=== PATIENT | female | born 1935 | race Caucasian/White ===

== ENCOUNTER 2019-03-29 09:40 | Inpatient (IN) ==
[2019-03-29 11:14] LABS: Basophils # 0.1 K/mcL (0.0-0.2); Basophils % 0.6 %; Eosinophils # 0.1 K/mcL (0.0-0.6); Eosinophils % 0.7 %; Hematocrit 40.9 % (35.3-44.9); Hemoglobin 13.2 g/dL (11.5-15.4); Immature Granulocytes % 1.1 % (0-4); Lymphocytes # 1.1 K/mcL (0.6-4.6); Lymphocytes % 12.8 %; Mean Corpuscular HGB Conc 32.3 g/dL (31.6-35.5); Mean Corpuscular Hemoglobin 27.2 pg (28.0-33.3); Mean Corpuscular Volume 84.2 fL (83.0-100.0); Mean Platelet Volume 8.5 fL (9.4-12.4); Monocytes # 0.8 K/mcL (0.0-1.3); Monocytes % 9.5 %; Neutrophils # 6.4 K/mcL (1.6-8.9); Platelet Count 369 K/mcL (140-400); Red Blood Count 4.86 M/mcL (3.82-4.97); Red Cell Distribution Width 13.9 % (11.5-14.5); Segmented Neutrophils % 75.3 %; White Blood Count 8.5 K/mcL (4.3-11.1)
[2019-03-29 11:30] LABS: Bilirubin,Urine Negative (Negative); Blood,Urine Moderate (Negative); Clarity,Urine Cloudy (Clear); Color,Urine Yellow (Yellow); Glucose,Urine (UA) Normal (Normal); Ketones,Urine 15 mg/dL (Negative); Leukocyte Esterase,Urine Large (Negative); Nitrite,Urine Negative (Negative); PH,Urine 6.5 pH Units (5.0-8.0); Protein,Urine 30 mg/dL (Neg-Trace); Specific Gravity,Urine 1.016 (1.010-1.025); Urobilinogen,Urine Normal (Normal)
[2019-03-29 11:32] LABS: Bacteria,Urine Few per hpf (None-Few); Hyaline Casts,Urine None Seen per lpf (None-Few); Squamous Epithelial Cell,Urine Many per lpf (None-Few); WBC,Urine TNTC per hpf (0-3)
[2019-03-29 11:34] LABS: Alanine Aminotransferase 16 Units/L (7-52); Albumin 3.9 g/dL (3.5-5.7); Albumin/Globulin Ratio 1.1 (1.1-2.2); Alkaline Phosphatase 210 Units/L (34-104); Aspartate Amino Transferase 73 Units/L (13-39); BUN/Creatinine Ratio 10 (6-26); Bilirubin,Total 0.4 mg/dL (0.3-1.0); Blood Urea Nitrogen 10 mg/dL (8-23); Calcium 9.8 mg/dL (8.6-10.3); Carbon Dioxide 27 mEq/L (23-29); Chloride 97 mEq/L (98-107); Globulin 3.7 g/dL (2.4-3.5); Glucose 129 mg/dL (70-105); Osmolality,Calculated 277 (280-300); Potassium 4.3 mEq/L (3.5-5.1); Sodium 133 mEq/L (136-145); Total Protein 7.6 g/dL (6.4-8.9); Troponin I < 0.03 ng/mL (< 0.04); eGFR For African Americans > 60 (> 60); eGFR For Non-African Americans 53 (> 60)
[2019-03-29] MEDS ORDERED: *HR* FentaNYL (PF) 100 MCG/2 ML VIAL IVP ONE (11:44)
[2019-03-29 12:23] LABS: Magnesium 2.2 mg/dL (1.6-2.6); Phosphorous 2.9 mg/dL (2.7-4.5)
[2019-03-29] MEDS ORDERED: *HR* HYDROmorphone (PF) 1 MG/ML SYRINGE IVP ONE (13:49)
[2019-03-29] MEDS ORDERED: Gadolinium Contrast Agent (WT Based) IV PRN (15:17)
[2019-03-29] MEDS ORDERED: Ondansetron 4 MG/2 ML VIAL IVP PRN (15:20)
[2019-03-29] MEDS ORDERED: Naloxone 0.4 MG/ML INJ IVP PRN (15:20)
[2019-03-29] MEDS ORDERED: 0.9 % Sodium Chloride 1,000 ML IVC SCH (15:30)
[2019-03-29] MEDS: Dexamethasone 4 MG/ML VIAL IVP SCH ×2 (17:57→22:17)
[2019-03-29] MEDS: *HR* OxyCODONE Immed Rel 5 MG TABLET PO PRN (17:57)
[2019-03-29] MEDS: Gabapentin 100 MG CAPSULE PO SCH (22:17)
[2019-03-30] MEDS: Dexamethasone 4 MG/ML VIAL IVP SCH ×2 (04:07→09:22)
[2019-03-30 07:22] LABS: Basophils % 0.3 %; Hematocrit 37.6 % (35.3-44.9); Hemoglobin 11.7 g/dL (11.5-15.4); Immature Granulocytes % 1.4 % (0-4); Lymphocytes # 0.9 K/mcL (0.6-4.6); Lymphocytes % 14.8 %; Mean Corpuscular HGB Conc 31.1 g/dL (31.6-35.5); Mean Corpuscular Hemoglobin 27.3 pg (28.0-33.3); Mean Corpuscular Volume 87.6 fL (83.0-100.0); Mean Platelet Volume 8.8 fL (9.4-12.4); Monocytes # 0.3 K/mcL (0.0-1.3); Monocytes % 4.3 %; Platelet Count 304 K/mcL (140-400); Red Blood Count 4.29 M/mcL (3.82-4.97); Red Cell Distribution Width 13.8 % (11.5-14.5); Segmented Neutrophils % 79.2 %; White Blood Count 6.3 K/mcL (4.3-11.1)
[2019-03-30 07:40] LABS: BUN/Creatinine Ratio 16 (6-26); Blood Urea Nitrogen 14 mg/dL (8-23); Calcium 9.3 mg/dL (8.6-10.3); Carbon Dioxide 25 mEq/L (23-29); Chloride 101 mEq/L (98-107); Glucose 139 mg/dL (70-105); Osmolality,Calculated 285 (280-300); Potassium 4.4 mEq/L (3.5-5.1); Sodium 136 mEq/L (136-145); eGFR For African Americans > 60 (> 60); eGFR For Non-African Americans > 60 (> 60)
[2019-03-30] MEDS: Gabapentin 100 MG CAPSULE PO SCH ×2 (09:22→21:14)
[2019-03-30] MEDS: Aspirin Enteric Coated 81 MG Tablet PO SCH (09:22)
[2019-03-30] MEDS: Acetaminophen 325 MG TABLET PO PRN ×2 (13:42→21:14)
[2019-03-31] MEDS: Acetaminophen 325 MG TABLET PO PRN (06:27)
[2019-03-31] MEDS: Aspirin Enteric Coated 81 MG Tablet PO SCH (08:39)
[2019-03-31] MEDS: Gabapentin 100 MG CAPSULE PO SCH (08:39)
[2019-03-31] MEDS ORDERED: Dexamethasone 4 MG/ML VIAL IVP SCH (09:00)
[2019-03-31] MEDS ORDERED: Gabapentin 100 MG CAPSULE PO ONE (09:39)
[2019-03-31] MEDS: *HR* OxyCODONE Immed Rel 5 MG TABLET PO PRN ×3 (11:51→23:03)
[2019-03-31 12:37] LABS: INR 1.3
[2019-03-31] MEDS: Gabapentin 300 MG CAPSULE PO SCH (20:18)
[2019-04-01] MEDS ORDERED: 0.9 % Sodium Chloride 500 ML ONE (09:09)
[2019-04-01] MEDS: Gabapentin 300 MG CAPSULE PO SCH ×2 (10:03→20:02)
[2019-04-01] MEDS: Aspirin Enteric Coated 81 MG Tablet PO SCH (10:03)
[2019-04-01] MEDS: *HR* OxyCODONE Immed Rel 5 MG TABLET PO PRN (10:03)
[2019-04-01] MEDS ORDERED: *HR* OxyCODONE Immed Rel 5 MG TABLET PO PRN (11:50)
[2019-04-01] MEDS: Acetaminophen 325 MG TABLET PO PRN (23:24)
[2019-04-02 05:15] LABS: Kappa Qnt Free Light Chains 1.64 mg/dL (0.33-1.94); Lambda Qnt Free Light Chains 0.91 mg/dL (0.57-2.63)
[2019-04-02 06:17] LABS: Urine Collection Volume RANDOM mL
[2019-04-02 07:39] VITALS: BP 148/76
[2019-04-03 01:37] LABS: Alpha 2 Globulin (PEP) 1.16 g/dL (0.48-1.05); Beta Globulin (PEP) 0.74 g/dL (0.48-1.10)
[2019-04-03 09:33] LABS: IFE Reflexed NOT DONE
== END 2019-04-02 10:05 | disposition home or self-care (01) | DRG 543 ==
LOC: 3BNU 09:40 → EMEROOARM 09:40 → OBSVTOIN 14:30 → 3BNU 15:24
PROVIDERS: ADMIT Internal Medicine; ATTEND Internal Medicine

== ENCOUNTER 2019-06-05 12:50 | Observation (INO) ==
[2019-06-05] MEDS ORDERED: Naloxone 0.4 MG/ML INJ IVP PRN (14:44)
[2019-06-05] MEDS ORDERED: Aspirin Enteric Coated 81 MG Tablet PO PRN (14:51)
[2019-06-05] MEDS ORDERED: levoFLOXacin 750 MG/150 ML 750 MG/150 ML BAG IVPB SCH (15:00)
[2019-06-05] MEDS ORDERED: Ringers Solution, Lactated 1,000 ML IVC SCH (15:15)
[2019-06-05 15:25] LABS: Basophils % 0.4 %; Eosinophils # 0.1 K/mcL (0.0-0.6); Eosinophils % 2.7 %; Hematocrit 35.4 % (35.3-44.9); Hemoglobin 10.7 g/dL (11.5-15.4); Immature Granulocytes % 0.4 % (0-4); Lymphocytes # 1.5 K/mcL (0.6-4.6); Lymphocytes % 33.9 %; Mean Corpuscular HGB Conc 30.2 g/dL (31.6-35.5); Mean Corpuscular Hemoglobin 26.4 pg (28.0-33.3); Mean Corpuscular Volume 87.4 fL (83.0-100.0); Monocytes # 0.3 K/mcL (0.0-1.3); Monocytes % 7.4 %; Neutrophils # 2.5 K/mcL (1.6-8.9); Platelet Count 270 K/mcL (140-400); Red Blood Count 4.05 M/mcL (3.82-4.97); Red Cell Distribution Width 17.2 % (11.5-14.5); Segmented Neutrophils % 55.2 %; White Blood Count 4.5 K/mcL (4.3-11.1)
[2019-06-05 15:30] LABS: INR 1.3
[2019-06-05 15:32] LABS: Activated Partial Thrombo Time 32.1 Seconds (26.0-36.0)
[2019-06-05 15:50] LABS: BUN/Creatinine Ratio 11 (6-26); Blood Urea Nitrogen 9 mg/dL (8-23); Calcium 7.5 mg/dL (8.6-10.3); Carbon Dioxide 21 mEq/L (23-29); Chloride 107 mEq/L (98-107); Glucose 84 mg/dL (70-105); Magnesium 2.3 mg/dL (1.6-2.6); Osmolality,Calculated 284 (280-300); Phosphorous 1.6 mg/dL (2.7-4.5); Potassium 3.6 mEq/L (3.5-5.1); Sodium 138 mEq/L (136-145); eGFR For African Americans > 60 (> 60); eGFR For Non-African Americans > 60 (> 60)
[2019-06-05] MEDS: *HR* Heparin 5,000 UNIT/ML VIAL SQ SCH (17:42)
[2019-06-05] MEDS: Sennosides/Docusate Sodium TABLET PO SCH (21:41)
[2019-06-05] MEDS: Aspirin Enteric Coated 81 MG Tablet PO SCH ×2 (21:41→21:58)
[2019-06-05] MEDS: Gabapentin 100 MG CAPSULE PO SCH (21:41)
[2019-06-05] MEDS: Lactulose Oral Soln 20 GM/30 ML UDC PO SCH (21:41)
[2019-06-06] MEDS: *HR* Heparin 5,000 UNIT/ML VIAL SQ SCH ×2 (05:19→19:05)
[2019-06-06] MEDS: Gabapentin 100 MG CAPSULE PO SCH ×2 (09:56→21:17)
[2019-06-06] MEDS: Lactulose Oral Soln 20 GM/30 ML UDC PO SCH ×2 (09:56→21:17)
[2019-06-06] MEDS: Sennosides/Docusate Sodium TABLET PO SCH ×2 (09:56→21:17)
[2019-06-06] MEDS: Aspirin Enteric Coated 81 MG Tablet PO SCH ×3 (09:56→21:17)
[2019-06-06] MEDS: *HR* OxyCODONE Immed Rel 5 MG TABLET PO PRN ×3 (10:01→21:17)
[2019-06-06] MEDS ORDERED: Cefepime HCl 2,000 MG in Water for inj. (sterile) 20 ML IVP SCH (18:00)
[2019-06-06] MEDS: Cefepime HCl 1,000 MG in Water for inj. (sterile) 20 ML IVP SCH (19:12)
[2019-06-07 03:49] LABS: BUN/Creatinine Ratio 6 (6-26); Blood Urea Nitrogen 5 mg/dL (8-23); Calcium 7.3 mg/dL (8.6-10.3); Carbon Dioxide 22 mEq/L (23-29); Chloride 108 mEq/L (98-107); Glucose 102 mg/dL (70-105); Magnesium 2.1 mg/dL (1.6-2.6); Osmolality,Calculated 281 (280-300); Phosphorous 2.1 mg/dL (2.7-4.5); Potassium 3.7 mEq/L (3.5-5.1); Sodium 137 mEq/L (136-145); eGFR For African Americans > 60 (> 60); eGFR For Non-African Americans > 60 (> 60)
[2019-06-07] MEDS: Cefepime HCl 1,000 MG in Water for inj. (sterile) 20 ML IVP SCH (05:41)
[2019-06-07] MEDS: *HR* Heparin 5,000 UNIT/ML VIAL SQ SCH (05:41)
[2019-06-07] MEDS: Sennosides/Docusate Sodium TABLET PO SCH (09:07)
[2019-06-07] MEDS: Lactulose Oral Soln 20 GM/30 ML UDC PO SCH (09:07)
[2019-06-07] MEDS: Aspirin Enteric Coated 81 MG Tablet PO SCH (09:07)
[2019-06-07] MEDS: Gabapentin 100 MG CAPSULE PO SCH (09:08)
[2019-06-07] MEDS: *HR* OxyCODONE Immed Rel 5 MG TABLET PO PRN (12:05)
[2019-06-07] MEDS ORDERED: levoFLOXacin 750 MG TABLET PO SCH (12:15)
[2019-06-07 15:21] VITALS: BP 122/60
[2019-06-08] MEDS ORDERED: Aspirin Enteric Coated 81 MG Tablet PO SCH (09:00)
== END 2019-06-07 14:57 | disposition home health service (06) ==
LOC: 3BNU → SUATTDRO 14:21
PROVIDERS: ADMIT Internal Medicine; ATTEND Internal Medicine